=== PATIENT | female | born 1985 | race Caucasian/White ===

== ENCOUNTER 2020-05-09 10:51 | Inpatient (IN) | payer BC ==
[2020-05-09] VITALS (29 sets, daily range): BP systolic 134–202; BP diastolic 69–105; PULSE 81–121; TEMP 97.5–98.3
[~2020-05-09] VITALS: Ht 157.5 cm; Wt 130.5 kg
[2020-05-09] MEDS ORDERED: CELEXA10 MG PO (11:30)
[2020-05-09] MEDS ORDERED: PRENATAL TABLET PO (11:31)
--- NOTE | 2020-05-09 11:45 | NUR ---
1105- Pt arrives on unit ambulatory, sent to LDR by Dr Potts for serial BP and lab work. Pt changes into gown. 1115- Pt into bed. EFM and TOCO on and tracing. Vital signs obtained. Assessment completed. Pt denies VB, LOF, UCs. States baby "does not move a whole lot." But has felt baby move today. Plan of care discussed and questions answered. Call light within reach.
[2020-05-09 12:17] LABS: BASO % 0.2 % (0.0-2.0); EOS % 0.1 % (0-4.0); GRAN % 82.8 % (42.2-75.2); HEMATOCRIT 45.2 % (37.0-47.0); HEMOGLOBIN 15.5 g/dl (12.5-16.0); LYMPH # 2.1 (1.2-3.4); MEAN CELL VOLUME 90 fl (80.0-100.0); MEAN CORPUSCULAR HEMOGLOBIN 31 pg (27.0-31.0); MEAN CORPUSCULAR HGB CONC 34 g/dl (33.0-37.0); MEAN PLATELET VOLUME 10.5 fl (7.4-10.4); MONO % 5.2 % (1.7-9.3); PLATELET COUNT 251 K/mm3 (130-400); RED BLOOD COUNT 5.05 M/mm3 (4.10-5.30); REDCELL DISTRIBUTION WIDTH-CV 14.9 % (11.5-14.5)
[2020-05-09 12:25] LABS: ALBUMIN 3.5 gm/dL (3.5-5.0); BILIRUBIN,TOTAL 0.3 mg/dL (0.0-1.0); CALCIUM 9.3 mg/dL (8.4-10.2); CREATININE, serum 0.68 (0.52-1.25); POTASSIUM 4.1 mmol/L (3.4-5.0); TOTAL PROTEIN 6.8 gm/dL (6.4-8.2)
[2020-05-10] VITALS (21 sets, daily range): BP systolic 127–178; BP diastolic 58–94; PULSE 75–96; TEMP 97.5–98.2
[2020-05-10 09:27] LABS: HEMATOCRIT 38.5 % (37.0-47.0); MEAN CELL VOLUME 91 fl (80.0-100.0); MEAN CORPUSCULAR HEMOGLOBIN 31 pg (27.0-31.0); MEAN CORPUSCULAR HGB CONC 34 g/dl (33.0-37.0); MEAN PLATELET VOLUME 10.3 fl (7.4-10.4); PLATELET COUNT 249 K/mm3 (130-400); RED BLOOD COUNT 4.25 M/mm3 (4.10-5.30); REDCELL DISTRIBUTION WIDTH-CV 15.3 % (11.5-14.5)
[2020-05-10 09:40] LABS: BILIRUBIN,TOTAL 0.4 mg/dL (0.0-1.0); CALCIUM 6.8 mg/dL (8.4-10.2); CREATININE, serum 0.72 (0.52-1.25); POTASSIUM 4.6 mmol/L (3.4-5.0); TOTAL PROTEIN 5.7 gm/dL (6.4-8.2)
[2020-05-10 09:55] LABS: HEMOGLOBIN 13.1 g/dl (12.5-16.0)
[2020-05-10 10:03] LABS: BAND 9 % (0-10); LYMPHOCYTE 8 % (20.0-51.0); METAMYELOCYTE 1 % (0-0); NEUTROPHILS 76 % (42.0-75.2); PLATELET ESTIMATE NORMAL (NORMAL)
--- NOTE | 2020-05-10 10:50 | NUR ---
1050- Pt to side of bed with assist x1. Pt stands, pericare completed by this RN. Peripad and underwear on. Arguelles remains in place. Pt transfers into wheelchair with standby assist only. Pt taken to nursery to visit baby. Pt tolerated well.
--- NOTE | 2020-05-10 14:05 | NUR ---
1405- Pt to room. Transfers to wheel chair to toilet independently with standby assist. Arguelles removed without difficulty. Pericare completed and explained. Pt ambulates to bed independently. Pt and oriented to room. Call light within reach.
[2020-05-11 00:01] VITALS: BP 165/91; PULSE 84
[2020-05-11 00:38] VITALS: BP 155/83; PULSE 84
[2020-05-11 05:44] VITALS: BP 152/94; PULSE 84
[2020-05-11 09:20] VITALS: BP 151/87; PULSE 99; TEMP 97.2
[2020-05-11] MEDS ORDERED: MOTRIN 600600 MG/TAB PO (10:00)
[2020-05-11] MEDS ORDERED: PROCARDIA XL 6060 MG PO (10:00)
[2020-05-11] MEDS ORDERED: PERCOCET 325 MG1 TA2 PO (10:01)
== END 2020-05-11 14:45 | disposition home or self-care (01) | DRG 788 ==
LOC: LDRO 10:51 → LDR 11:05 → LDRO 14:28 → OB 14:30 → LDR 14:30 → OB 05-10 11:00
PROVIDERS: ADMIT Obstetrics & Gynecology
PROC: 10D00Z1 Extraction of Products of Conception, Low, Open Approach (ICD-10-PCS; principal; 2020-05-09)
DX: O14.14 Severe pre-eclampsia complicating childbirth (principal); Z3A.35 35 weeks gestation of pregnancy; Z37.0 Single live birth; O99.214 Obesity complicating childbirth; E66.9 Obesity, unspecified; O36.5930 Maternal care for other known or suspected poor fetal growth, third trimester, not applicable or unspecified
CPT/HCPCS: J0360; J0690; J1100; J2405; J2590; J3475; J7120